=== PATIENT | male | born 1980 | race African-American/Black ===

== ENCOUNTER 2022-08-03 22:28 | Emergency (ER) | payer OTHER ==
[~2022-08-03] VITALS: Ht 182.9 cm; Wt 73.9 kg
[2022-08-03 23:18] VITALS: BP 110/87
--- NOTE | 2022-08-04 03:00 | NUR ---
C/O abdominal pain x today. Patient reported, had gen abdominal pain, nausea, vomiting today. PMHx: Anemia, HTN
[2022-08-04] MEDS ORDERED: KETOROLAC 30 MG/ML VIAL IM ONE (03:10)
[2022-08-04 04:56] VITALS: BP 110/87
--- NOTE | 2022-08-04 04:57 | NUR ---
Patient discharged with v/s stable. Written and verbal after care instructions given and explained. Patient verbalized understanding. Ambulatory with steady gait. All questions addressed prior to discharge. Advised to follow up with PMD. PT LEFT WITH HIS BELONGINGS
== END 2022-08-04 04:57 | disposition home or self-care (01) ==
LOC: MED 22:28
DX: R10.9 Unspecified abdominal pain (principal)
CPT/HCPCS: 96372; 99283; J1885